=== PATIENT | male | born 1950 | race Two or more races ===

== ENCOUNTER 2022-12-22 13:56 | Outpatient (CLI) | payer OTHER | END 2022-12-22 14:01 | disposition home or self-care (01) | LOC: RAD 13:56 | PROVIDERS: ATTEND Surgery | DX: K59.00 Constipation, unspecified (principal) ==

== ENCOUNTER 2023-03-23 08:24 | Emergency (ER) | payer OTHER ==
[~2023-03-23] VITALS: Ht 167.6 cm; Wt 93.0 kg
[2023-03-23] MEDS ORDERED: GLUMETZA500 MG (09:01)
[2023-03-23] MEDS ORDERED: HUMALOG100 UNIT/1 (09:01)
[2023-03-23] MEDS ORDERED: LANTUS SOL100 UNIT/1 (09:01)
[2023-03-23] MEDS ORDERED: VASOTEC20 M1 (09:01)
[2023-03-23] MEDS ORDERED: ROSUVASTATIN CA20 MG (09:02)
[2023-03-23] MEDS ORDERED: GLIMEPIRIDE4 M1 (09:02)
[2023-03-23] MEDS ORDERED: FUROSEMIDE20 MG (09:02)
[2023-03-23] MEDS ORDERED: GABAPENTIN300 M2 (09:02)
== END 2023-03-23 11:38 | disposition home or self-care (01) ==
LOC: ER 08:24
DX: J10.1 Influenza due to other identified influenza virus with other respiratory manifestations (principal); R05.8 Other specified cough; Z91.041 Radiographic dye allergy status; Z20.822 Contact with and (suspected) exposure to COVID-19
CPT/HCPCS: 36415; 96372; 99284; J0696

== ENCOUNTER → 2024-05-29 | Emergency (ER) | payer OTHER ==
[~2024-05-29] VITALS: Ht 167.6 cm; Wt 92.5 kg
[~2024-05-29] MED LIST: DICLOFENAC POTA50 MG PO; FUROSEMIDE20 MG; GABAPENTIN300 M2; GLIMEPIRIDE4 M1; GLUMETZA500 MG; HUMALOG100 UNIT/1; LANTUS SOL100 UNIT/1; METHOCARBAMOL750 MG PO; ROSUVASTATIN CA20 MG; VASOTEC20 M1
== END | disposition home or self-care (01) ==
LOC: ER 10:36
DX: J06.9 Acute upper respiratory infection, unspecified (principal); Z20.822 Contact with and (suspected) exposure to COVID-19; I10 Essential (primary) hypertension; E11.9 Type 2 diabetes mellitus without complications; Z79.4 Long term (current) use of insulin; Z91.041 Radiographic dye allergy status